=== PATIENT | male | born 1975 | race Caucasian/White ===

== ENCOUNTER 2020-07-30 13:22 | Outpatient (CLI) | payer OTHER | END 2020-07-30 13:23 | disposition critical access hospital (66) | LOC: EMS 13:22 | PROVIDERS: ATTEND Emergency Medicine | DX: S80.852A Superficial foreign body, left lower leg, initial encounter (principal); W45.8XXA Other foreign body or object entering through skin, initial encounter; W22.09XA Striking against other stationary object, initial encounter; Y93.H3 Activity, building and construction; Y92.009 Unspecified place in unspecified non-institutional (private) residence as the place of occurrence of the external cause | CPT/HCPCS: A0425; A0429 ==

== ENCOUNTER 2020-07-30 13:40 | Emergency (ER) | payer OTHER ==
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
[2020-07-30] MEDS ORDERED: IBUPROFEN 600 MG TABLET PO STA (14:16)
[2020-07-30] MEDS ORDERED: ACETAMINOPHEN 325 MG TABLET PO STA (14:16)
[2020-07-30 14:35] VITALS: BP 122/84
== END 2020-07-30 14:54 | disposition home or self-care (01) ==
LOC: ED 13:40
DX: S80.852A Superficial foreign body, left lower leg, initial encounter (principal); W45.8XXA Other foreign body or object entering through skin, initial encounter; Y93.H3 Activity, building and construction; Y92.009 Unspecified place in unspecified non-institutional (private) residence as the place of occurrence of the external cause
CPT/HCPCS: 10120; 99282; 99283; A9270